=== PATIENT | male | born 1960 | race Caucasian/White ===

== ENCOUNTER 2017-12-26 06:23 | Inpatient (IN) ==
--- NOTE | 2017-12-26 06:06 | History & Physical Report ---
Date of Encounter: 12/26/17 Time of Encounter: 06:06 24 Hour HP Update - Instructions Instructions: If the History and Physical is less than 30 days old and was completed prior to A.M. admission and or procedure and has NOT been updated on calendar day of procedure please complete this update prior to performing procedure. - Update Patient reports changes in Medical Condition: No Changes in examination, assessment, or condition: No Changes in Medication: No Preop tests/diagnostics Reviewed: Yes Surgery Remains Indicated: Yes Consent for Planned Operative Procedure(s) Verified: Yes - Pre-Operative Checklist Preoperative Checklist Indicated: No Prophylactic Antibiotic Ordered: Yes Is VTE Prophylaxis Indicated?: Yes
[2017-12-26] MEDS ORDERED: CeFAZolin Syr 2,000MG/20 ML 2,000 MG/20 ML SYRINGE IVPB ONE (06:39)
[2017-12-26] MEDS ORDERED: Ringers Solution, Lactated 1,000 ML IVC SCH ×3 (06:45→17:37)
[2017-12-26] MEDS ORDERED: Pregabalin 75 MG CAPSULE PO ONE (07:00)
[2017-12-26] MEDS ORDERED: Famotidine 20 MG/2 ML VIAL IVP ONE (07:00)
[2017-12-26] MEDS ORDERED: ROPIVACAINE HCL/PF 0.5% 30 ML VIAL ONE ×2 (07:00→07:18)
[2017-12-26] MEDS ORDERED: Acetaminophen IV 1,000 MG/100 ML INFUS..BTL IVPB ONE (07:02)
--- NOTE | 2017-12-26 07:17 | Anesthesia Evaluation PreOp ---
Date of Encounter: 12/26/17 Time of Encounter: 07:15 - Past History Planned Operation: Bilateral TKA Cardiac History: HTN, Hyperlipidemia Pulmonary History: Denies Any Significant HX BUTTON BUTTONHOLE MARKER History: Denies Any Significant HX Other Medical History: Other (Morbid Obesity) Anesthesia History: No Prior Anesthetic Complications Alcohol Use: rarely Drug use: none Medications and Allergies Aspirin Enteric Coated [Aspirin EC] 325 mg PO BID #20 tablet. 12/25/17 [Rx] OxyCODONE Immed Rel [Roxicodone 5 MG] 5 mg PO Q6HR PRN 7 Days #28 tablet [Rx] 3 Allergy/AdvReac Type Severity Reaction Status Date / Time No Known Allergies Allergy Verified 12/25/17 12:11 - Meds/Allergy Pre-op Review Medications Reviewed: Yes Allergies Reviewed: Yes Beta Blockers on Current Med List: Yes (Atenolol yesterday 2199) Anesthesia Results - Labs Laboratory Tests 12/25/17 12/25/17 12:12 12:12 Hgb 15.2 Hct 43.6 Plt Count 275 Sodium 142 Potassium 3.7 BUN 22 H Creatinine 1.10 - Imaging EKG: report reviewed (SR) Anesthesia Exam O2 Sat Height 1.73 m Height 1.73 m Height 1.73 m Weight 119.748 kg Weight 119.748 kg Weight 119.748 kg O2 Sat by Pulse Oximetry 97 Vital Signs Temp Pulse Resp BP Pulse Ox 98.2 F 68 18 152/93 97 12/26/17 06:39 12/26/17 06:39 12/26/17 06:39 12/26/17 06:39 12/26/17 06:39 Height: 5'8 Weight: 264 lbs NPO (# of Hours): MN Pain Scale: 0 - HEENT Pupil (Motor): Pupils equal, EOMI Mallampati: III Teeth: Edentulous Oral Opening: Less than or equal to 3 - BUTTON BUTTONHOLE MARKER LOC: Oriented BUTTON BUTTONHOLE MARKER Motor: Normal RUE, Normal LUE, Normal RLE, Normal LLE, Normal Face BUTTON BUTTONHOLE MARKER Sensory: Normal: RUE, LUE, RLE, LLE, Face - Cardiac Rhythm: Regular Murmur: None JVD: No Carotid Bruit: No - Pulmonary Breath Sounds: bilateral Clear Respiratory Effort: Symmetrical Anesthesia Assess/Plan ASA Score: 3 (HTN MO) Modified Elida Scale for Level of Consciousness: Cooperative, oriented, and tranquil Anesthetic Plan: Regional, MAC Monitoring Plan: Standard Monitors Recovery Plan: PACU (Discussed SAB with Adductor Canal possible MAC, posible GA , agrees to proceed)
[2017-12-26] MEDS ORDERED: Dexmedetomidine HCl 400 MCG/100 ML MLS IVC ONE (07:18)
[2017-12-26] MEDS ORDERED: Tetracaine/PF 20 MG/2 ML AMPUL ONE (07:24)
[2017-12-26] MEDS ORDERED: Propofol 500 MG/50 ML INFUS..BTL ONE (07:25)
[2017-12-26] MEDS ORDERED: *HR* Midazolam HCl 2 MG/2 ML VIAL ONE (07:26)
[2017-12-26] MEDS ORDERED: Lidocaine -MPF 2% 2 ML VIAL ONE (07:26)
[2017-12-26] MEDS ORDERED: *HR* FentaNYL (PF) 100 MCG/2 ML VIAL ONE (07:26)
[2017-12-26] MEDS ORDERED: Lidocaine -MPF 2% 5 ML VIAL ONE (07:28)
[2017-12-26] MEDS ORDERED: Ethanol\\Acetic Acid\\Na Ace\\Ben 1,000 ML IRRIG.SOLN IR ONE (07:45)
--- NOTE | 2017-12-26 07:53 | Anesthesia Procedures ---
Date of Encounter: 12/26/17 Time of Encounter: 07:30 Procedures: Anesthesia - Epidural/Spinal Patient ID/Chart reviewed: Yes Patient examined: Yes Supplemental Oxygen: Nasal Cannula (2) Sedation: Versed (mg): 4 Site Prep: Aseptic Technique Patient position: upright Local Anesthetic: Lidocaine 1% Interspace Used: L4-L5 Loss of Resistance (GALINA): No Blood: No CSF: Yes Paresthesia: No Spinal Needle Gauge: 24 Spinal Dose: 12 mg isobaric marcaine,duramorph 300 micrograms - Nerve Block Procedure Date: 12/26/17 Time: 07:40 Pre-op Diagnosis: Knee OA Surgical Procedure: TKA Checklist: Correct Patient Identifier Correct side: Right Monitor Applied: EKG, BP, Pulse Oximetry Supplemental Oxygen via Nasal Cannula (L/min): 2 Sedation: Versed (mg): 4 Indication: Post Op Analgesia Pre-op Neuro Deficits: No Block Type: Other (Adductor Canal Block) Catheter placed: No Depth at skin (cm): 4 Sterile Technique: Yes Ultrasound used: Yes Anatomy identified: Yes Visual spread of Local: Yes Neuro Stimulation: No Blood on Needle Aspiration: No Smooth Injection of Local: Yes Pain with Injection of Local: No Prep: Chlorhexadine Needle: 21 x 100 mm Stimuplex Local: Ropivacaine Volume (cc): 30 Number of Attempts: 1 Complications: None/effective block (1) Vitals: Vital Signs/O2 Sat/Glucose, Most Current Temp Pulse Resp BP Pulse Ox 12/26/17 07:41 74 74 119/68 98 12/26/17 07:26 69 17 152/88 99 12/26/17 06:39 98.2 F 68 18 152/93 97
[2017-12-26] MEDS ORDERED: *HR* Labetalol 100 MG/20 ML MDV IVP PRN (08:41)
[2017-12-26] MEDS ORDERED: Ondansetron 4 MG/2 ML VIAL IVP ONE (08:41)
[2017-12-26] MEDS ORDERED: Dexamethasone 4 MG/ML VIAL IVP ONE (08:41)
[2017-12-26] MEDS ORDERED: Ketorolac 15 MG/ML VIAL IVP ONE (08:41)
[2017-12-26] MEDS ORDERED: *HR* OxyCODONE Immed Rel 5 MG TABLET PO PRN (08:41)
[2017-12-26] MEDS ORDERED: Ondansetron 4 MG/2 ML VIAL ONE (09:28)
[2017-12-26] MEDS ORDERED: Dexamethasone 4 MG/ML VIAL ONE (09:28)
--- NOTE | 2017-12-26 09:53 | Orthopedic Operative Note ---
Date of procedure: 12/26/17 Pre-op diagnosis: Bilateral knee arthritis Post-op diagnosis: same Procedure: Procedure: Bilateral robotic-assisted Total knee replacement Estimated blood loss: 500 cc Hardware: Metal and polyethylene replacement. Bilateral [place]oyen Femur: 4 Tibia: 4 PS insert: 11 Patella: 39 Exam Under anesthesia: Right knee 5 degree flexion contracture 15 degree varus, right knee for degree hyperextension 13 degree varus as calculated by the robot full flexion and no instability Procedural Notes: Grade 4 arthritic changes all 3 compartments both knees. Operative procedure: The patient was brought to the operating room and placed on the operating room table. After general anesthesia was administered the operative knee was examined. Findings were noted in the exam under anesthesia. The operative extremity was prepped and draped in sterile surgical fashion. The patient received IV antibiotics prior to skin incision. The Part that will be dictated will be for both knees any differences will be highlighted surgery began with the left knee followed by the right knee. A standard midline incision was made centered over the patella. The incision was made through the skin and subcutaneous tissue. A medial parapatellar tendon approach was performed. Care was taken to preserve tissue along the medial aspect of the patella. And to protect the patella tendon. The deep MCL was released off the medial tibia. The infra patella fat pad was excised. The patella was everted and cut was made at the level of the insertion of the quadriceps and patella tendon. The patella was sized to 39 the guide was seated and the lug holes are drilled. Knee was brought into flexion. Patient noted to have Steinmann pins were placed in the tibia and the femur for the tibial and femoral arrays respectively. Checkpoints were also placed in the tibia and the femur for calculation purposes. The knee including the femur and the tibial registered. Osteophytes, ACL and PCL were excised at this point. Extension and flexion were assessed with a valgus stress components were adjusted on the computer to balance the knee. Femoral cuts were made first with robotic assistance, these included the anterior cut posterior cuts chamfer cuts. Tibial cut was then performed with robotic assistance as well. Bone fragments were removed, as well as the medial and lateral meniscus. The size 4 femoral guide was seated box cut was made lug holes are drilled. The size 4 tibial tray was seated and prepared with the fin cutter. Trial reduction with the 11 TS [place] revealed extension of 0 degree and 5 degree varus left knee, 8 degree varus right knee full flexion. No varus valgus instability. Trial reduction revealed excellent patella tracking. All trial components were removed all bony surfaces were irrigated. The Tibia was seated followed by the femur, The [place] size 11 was seated and secured patella. Patient had similar findings for motion and stability. The knee was closed by the PA. The knee was then irrigated out with 2 L of pulse irrigation. The extensor mechanism was closed with #2 FiberWire suture and #2 PDS suture. The subcutaneous tissue was then irrigated and closed deep with #1 PDS suture superficially with 0 PDS suture and skin was closed with zip tie The patient was then placed in a sterile dressing and a postoperative brace extubated and transferred to recovery room in stable condition. Anesthesia: spinal Surgeon: Deven Albarran Was there an assistant professor of archaeology present: Yes Neighborhood Conservation Officer: Suma Cadet Estimated blood loss (cc): 500 Condition: stable Disposition: PACU
[2017-12-26] MEDS: *HR* Promethazine 25 MG/ML VIAL IVP PRN ×2 (10:49→10:54)
[2017-12-26 11:02] LABS: Hematocrit 40.6 % (37.5-50.1); Hemoglobin 14.2 g/dL (12.9-16.9)
[2017-12-26] MEDS ORDERED: *HR* OxyCODONE/APAP 5/325 TABLET PO PRN ×2 (12:56→17:37)
[2017-12-26] MEDS ORDERED: OXYCODONE Oral CONC 10 MG/0.5 ML ORAL.SYG SL PRN ×2 (12:56→14:15)
[2017-12-26] MEDS ORDERED: Naloxone 0.4 MG/ML INJ IVP PRN ×2 (12:56→17:37)
--- NOTE | 2017-12-26 12:58 | Anesthesia Evaluation Post Op ---
Date of Encounter: 12/26/17 Time of Encounter: 11:30 - Vital Signs Vital Signs: Vital Signs/O2 Sat/Glucose, Most Current Temp Pulse Resp BP Pulse Ox 12/26/17 11:21 97.7 F 58 16 97/63 100 12/26/17 11:11 97.7 F 53 18 105/65 100 12/26/17 11:01 97.7 F 61 18 114/73 100 12/26/17 10:51 62 18 133/91 100 12/26/17 10:41 54 20 123/81 98 12/26/17 10:31 97.2 F L 61 26 132/84 92 - Lungs Lungs: Clear Ascult./Percussion - Airway Airway: Non-obstructed - Cardiovascular Regular Rate - Mental Status Mental Status: Alert & Oriented, Answers Appropriately - Pain Pain Scale: 0 - Nausea Vomiting Nausea Vomiting: Not Present - Hydration Hydration: Ice chips - Discharge PostOp Status: Transfer Patient to floor
--- NOTE | 2017-12-26 15:52 | Physician Discharge Referral ---
<Suma Cadet Jeanie - Last Filed: 12/26/17 15:50> Home Health/Hosp Referral Info Transfer to: Home Health Attending Provider: Provider in Charge Post Discharge: PCP - Diagnosis (1) Status post total bilateral knee replacement Priority: Primary Status: Acute (2) Arthritis of knee Priority: Primary Status: Acute (3) HTN (hypertension) Priority: Secondary Status: Acute (4) Obesity (BMI 35.0-39.9 without comorbidity) Priority: Secondary Status: Chronic - Respiratory Orders None Smoking Cessation: Smoking cessation has been advised. For more information, call the [place] Tobacco Quit Line at 1-927-HEFM-NOW. - Diet/Nutrition Diet/Nutrition Orders: Regular - Activity Activity Orders: Up ad tra, Ambulate, Walker - Services Needed Following services are medically necessary services: Nursing, Home Health Aide, Physical Therapy, Occupational Therapy Home Care Orders: Rehab orders for total knee: Total Knee replacement Precautions x 6 weeks Apply cold therapy wrap 3-6x/day for 20 minutes at a time. Encourage ambulation throughout the day and incentive spirometer 10x/hour. Elevate affected extremity above heart as tolerated. Brace: Wear knee immobilizer at night x 2 weeks. Treatments: Opsite and Zipline dressing, leave intact until first post-operative visit. If dressing becomes >50% saturated, contact office, remove dressing and place appropriate dressing in its place. Do not allow for dressing to get wet. Educated on use of incentive spirometer, ambulation, and hydration. Patient educated on post-operative restrictions and care. - Transfer Medications Prescriptions: Cyclobenzaprine [Flexeril] 10 mg PO BID PRN 10 Days #20 tablet PRN Reason: Muscle Spasm Lidocaine Patch [Lidoderm 5% patch] 1 each TP DAILY #60 adh..patch Home Medications: Aspirin Enteric Coated [Aspirin EC] 325 mg PO BID #20 tablet. 12/25/17 [Rx] OxyCODONE Immed Rel [Roxicodone 5 MG] 5 mg PO Q6HR PRN 7 Days #28 tablet [Rx] Aspirin [Lo-Dose Aspirin EC] 81 mg PO DAILY 12/26/17 [History] Atenolol [Tenormin] 50 mg PO HS 12/26/17 [History] Dextromethorphan Hb/Doxylamine [Vicks Nyquil Cough Liquid] 30 ml PO HS PRN 07/11 /18 [History] Lisinopril [Zestril] 20 mg PO HS 12/26/17 [History] amLODIPine [Norvasc] 5 mg PO HS 12/26/17 [History] Cyclobenzaprine [Flexeril] 10 mg PO BID PRN 10 Days #20 tablet 12/27/17 [Rx] Lidocaine Patch [Lidoderm 5% patch] 1 each TP DAILY #60 adh..patch 12/27/17 [Rx] Allergies/Adverse Reactions: 3 Allergy/AdvReac Type Severity Reaction Status Date / Time No Known Allergies Allergy Verified 12/26/17 07:26 Certification: Further, I certify that my clinical findings support that this patient is homebound (i.e. absences from home require considerable and taxing effort and are for medical reasons or sabianism services or infrequently or short duration when for other reasons) because: Homebound Reason: Post-surgery restriction and or conditions limit ability to leave home Attestation: My signature below is to certify that this patient is under my care and that I, or nurse practitioner, or a physician's assistant pastry chef working with me, has a face-to -face encounter with this patient. <Deven Albarran - Last Filed: 12/28/17 06:45> - Respiratory Orders Smoking Cessation: Smoking cessation has been advised. For more information, call the [place] Tobacco Quit Line at 3-554-YPNW-NOW. Certification: Further, I certify that my clinical findings support that this patient is homebound (i.e. absences from home require considerable and taxing effort and are for medical reasons or sabianism services or infrequently or short duration when for other reasons) because: Attestation: My signature below is to certify that this patient is under my care and that I, or nurse practitioner, or a physician's assistant pastry chef working with me, has a face-to -face encounter with this patient.
[2017-12-26] MEDS ORDERED: DOXYLAMINE PO PRN (17:37)
[2017-12-26] MEDS ORDERED: DEXTROMETHORPHAN HB PO PRN (17:37)
[2017-12-26] MEDS ORDERED: MOM Conc 10 ML UD.LIQ PO PRN (17:37)
[2017-12-26] MEDS ORDERED: Temazepam 15 MG CAPSULE PO PRN (17:37)
[2017-12-26] MEDS ORDERED: traMADol 50 MG TABLET PO PRN (17:37)
[2017-12-26] MEDS ORDERED: Ondansetron 4 MG/2 ML VIAL IVP PRN (17:37)
[2017-12-26] MEDS ORDERED: Sennosides 8.6 MG TABLET PO PRN (17:37)
[2017-12-26] MEDS ORDERED: *HR* Enoxaparin 30 MG/0.3 ML SYRINGE SQ SCH (18:00)
[2017-12-26] MEDS: *HR* Enoxaparin 30 MG/0.3 ML SYRINGE SQ SCH (18:20)
[2017-12-26] MEDS: Aspirin Enteric Coated 81 MG Tablet PO SCH (18:24)
[2017-12-26] MEDS: ceFAZolin 2,000 MG in 0.9 % Sodium Chloride 100 ML IVPB SCH (20:05)
[2017-12-26] MEDS: Lisinopril 20 MG TABLET PO SCH (20:05)
[2017-12-26] MEDS: amLODIPine 5 MG TABLET PO SCH (20:05)
[2017-12-26] MEDS ORDERED: *HR* Promethazine 25 MG/ML VIAL IVP PRN (20:45)
[2017-12-27 01:53] LABS: Hemoglobin 13.5 g/dL (12.9-16.9)
[2017-12-27] MEDS: ceFAZolin 2,000 MG in 0.9 % Sodium Chloride 100 ML IVPB SCH (02:33)
[2017-12-27] MEDS: *HR* OxyCODONE Immed Rel 5 MG TABLET PO PRN ×5 (02:39→21:02)
[2017-12-27 02:53] LABS: BUN/Creatinine Ratio 25 (6-26); Blood Urea Nitrogen 26 mg/dL (6-20); Calcium 9.1 mg/dL (8.6-10.3); Carbon Dioxide 22 mEq/L (23-29); Chloride 104 mEq/L (98-107); Glucose 196 mg/dL (70-105); Osmolality,Calculated 296 (280-300); Potassium 4.3 mEq/L (3.5-5.1); Sodium 138 mEq/L (136-145); eGFR For African Americans > 60 (> 60); eGFR For Non-African Americans > 60 (> 60)
[2017-12-27] MEDS: *HR* Enoxaparin 30 MG/0.3 ML SYRINGE SQ SCH ×2 (05:59→17:01)
--- NOTE | 2017-12-27 08:11 | Orthopedics Progress Note ---
Date of Encounter: 12/27/17 Time of Encounter: 08:11 Subjective Interval history: Patient was seen this morning doing well without complaints. Afebrile vital signs stable. Operative extremity: Neurovascularly intact Dressing clean dry and intact Calves nontender Assessment and plan: Continue with postoperative care Objective Vital signs: Vital Signs Temp Pulse Resp BP Pulse Ox 12/27/17 06:24 98.2 F 78 17 127/72 99 12/27/17 04:07 98.7 F 75 16 109/63 95 12/26/17 23:10 98.3 F 74 16 107/63 97 12/26/17 19:18 97.8 F 73 14 134/84 98 12/26/17 17:55 98.1 F 61 12 119/77 92 12/26/17 13:50 97.6 F 56 12 123/73 100 12/26/17 12:06 50 12 100/64 100 12/26/17 11:40 97.1 F L 50 14 101/65 96 12/26/17 11:21 97.7 F 58 16 97/63 100 12/26/17 11:11 97.7 F 53 18 105/65 100 12/26/17 11:01 97.7 F 61 18 114/73 100 12/26/17 10:51 62 18 133/91 100 12/26/17 10:41 54 20 123/81 98 12/26/17 10:31 97.2 F L 61 26 132/84 92 Intake and Output 12/26/17 12/27/17 12/27/17 23:59 07:59 15:59 Intake Total 100 / 100 Output Total 750 / 750 Balance -650 / -650 Intake: IV Fluids 100 / 100 Ancef 2,000 MG In 0.9 % Sodium 100 / 100 Chloride 100 ML @ 200 mls/hr IVPB Q8H [facility] Rx#:[id number] Output: Emesis 100 / 100 Straight Cath 650 / 650 Other: Stool Size Small Stool Consistency loose Stool Color Brown - Labs CBC & BMP: 12/27/17 01:55 12/27/17 01:18 Labs: Abnormal lab results Carbon Dioxide 22 mEq/L (23-29) L 12/27/17 01:18 BUN 26 mg/dL (6-20) H 12/27/17 01:18 Glucose 196 mg/dL (70-105) H 12/27/17 01:18 - VTE Documentation of Mechanical Device: Venous foot pump, device Consult Discharge Plan - Plan Referrals: Alonzo Orozco [Primary Care Provider] -
[2017-12-27] MEDS: Aspirin Enteric Coated 81 MG Tablet PO SCH (08:38)
--- NOTE | 2017-12-27 16:33 | Event Note ---
Date of Encounter: 12/27/17 Time of Encounter: 16:30 PCR - POD#1 Patient seen at bedside, without complaints. A&O x 3 Urinary Retention - continue to bladder scan and straight cath if needed with residual > 400mL. Will consider urology consult in AM if no progression. Afebrile, vital signs stable. Labs reviewed. H/H - stable, asymptomatic Pain control: adequate 12/26 - Added Flexeril 5mg BID, Lidoderm patch Participating in PT. All questions and concerns addressed. Educated on use of incentive spirometer. Encouraged ambulation and proper hydration. Patient educated on post-operative restrictions and post-operative care. Assessment and plan: Continue with postoperative care Discharge plan: ECF - pending authorization, added continuity, medications added
--- NOTE | 2017-12-27 16:36 | Physician Discharge Referral ---
<FreedomlopezSuma wheatley L - Last Filed: 12/27/17 16:33> ExtendedCare Referral Info Transfer To: [facility] Provider in Charge: Provider in Charge after Transfer: PCP Institutional Level of Care: Skilled - Diagnosis (1) Status post total bilateral knee replacement Priority: Primary Status: Acute (2) Arthritis of knee Priority: Primary Status: Acute (3) HTN (hypertension) Priority: Secondary Status: Acute (4) Obesity (BMI 35.0-39.9 without comorbidity) Priority: Secondary Status: Chronic (5) Urinary retention Priority: Secondary Status: Acute Expected Duration of Placement: < 30 days Prognosis: Good Aware of Diagnosis: Patient Aware of Prognosis: Patient - Transfer Medications Prescriptions: Cyclobenzaprine [Flexeril] 10 mg PO BID PRN 10 Days #20 tablet PRN Reason: Muscle Spasm Lidocaine Patch [Lidoderm 5% patch] 1 each TP DAILY #60 adh..patch Home Medications: Aspirin Enteric Coated [Aspirin EC] 325 mg PO BID #20 tablet. 12/25/17 [Rx] OxyCODONE Immed Rel [Roxicodone 5 MG] 5 mg PO Q6HR PRN 7 Days #28 tablet [Rx] Aspirin [Lo-Dose Aspirin EC] 81 mg PO DAILY 12/26/17 [History] Atenolol [Tenormin] 50 mg PO HS 12/26/17 [History] Dextromethorphan Hb/Doxylamine [Vicks Nyquil Cough Liquid] 30 ml PO HS PRN 12/26 [History] Lisinopril [Zestril] 20 mg PO HS 12/26/17 [History] amLODIPine [Norvasc] 5 mg PO HS 12/26/17 [History] Cyclobenzaprine [Flexeril] 10 mg PO BID PRN 10 Days #20 tablet 12/27/17 [Rx] Lidocaine Patch [Lidoderm 5% patch] 1 each TP DAILY #60 adh..patch 12/27/17 [Rx] Allergies/Adverse Reactions: 3 Allergy/AdvReac Type Severity Reaction Status Date / Time No Known Allergies Allergy Verified 12/26/17 07:26 - Respiratory Orders None Smoking Cessation: Smoking cessation has been advised. For more information, call the [place] Tobacco Quit Line at 7-349-AJAM-NOW. - Mobility Orders Chair, Ambulate - Rehabiliation Orders Rehab Potential: Good Rehab Orders: ROM Exercises, Evaluation for Physical Therapy, Evaluation for Occupational Therapy Other: Opsite dressing, leave intact until first post-operative visit. If dressing becomes >50% saturated, contact office, remove dressing and place appropriate dressing in its place. Do not allow for dressing to get wet. Zipline in place, plan to remove at post-operative day #14-16. Total Joint Precautions x 6 weeks Apply cold therapy wrap 3-6x/day for 20 minutes at a time. Encourage ambulation throughout the day Use Incentive spirometer 10x/hour. Elevate affected extremity above heart as tolerated. Brace: Wear knee immobilizer at night x 2 weeks.~ - Diet Orders Regular CERTIFICATION: I certify that the transfer of the above named patient to an Extended Care Facility is necessary for the continuing treatment of the diagnosis listed. The above information is true and accurate reflection of patient's current condition. Confidential - Redisclosure prohibited without a patient's written consent. <Deven Albarran - Last Filed: 12/28/17 06:45> - Respiratory Orders Smoking Cessation: Smoking cessation has been advised. For more information, call the [place] Tobacco Quit Line at 3-485-KIDK-NOW. CERTIFICATION: I certify that the transfer of the above named patient to an Extended Care Facility is necessary for the continuing treatment of the diagnosis listed. The above information is true and accurate reflection of patient's current condition. Confidential - Redisclosure prohibited without a patient's written consent.
[2017-12-27] MEDS: Lisinopril 20 MG TABLET PO SCH (20:08)
[2017-12-27] MEDS: amLODIPine 5 MG TABLET PO SCH (20:08)
[2017-12-28] MEDS: *HR* OxyCODONE Immed Rel 5 MG TABLET PO PRN ×4 (00:55→15:13)
[2017-12-28 01:39] LABS: Hematocrit 33.4 % (37.5-50.1); Hemoglobin 11.7 g/dL (12.9-16.9)
[2017-12-28 01:56] LABS: BUN/Creatinine Ratio 26 (6-26); Blood Urea Nitrogen 22 mg/dL (6-20); Calcium 8.4 mg/dL (8.6-10.3); Carbon Dioxide 22 mEq/L (23-29); Chloride 103 mEq/L (98-107); Glucose 132 mg/dL (70-105); Osmolality,Calculated 285 (280-300); Potassium 3.6 mEq/L (3.5-5.1); Sodium 135 mEq/L (136-145); eGFR For African Americans > 60 (> 60); eGFR For Non-African Americans > 60 (> 60)
[2017-12-28] MEDS: *HR* Enoxaparin 30 MG/0.3 ML SYRINGE SQ SCH (04:54)
--- NOTE | 2017-12-28 06:46 | Orthopedics Progress Note ---
Date of Encounter: 12/28/17 Time of Encounter: 06:45 Subjective Interval history: Patient was seen this morning doing well without complaints. Afebrile vital signs stable. Operative extremity: Neurovascularly intact Dressing clean dry and intact Calves nontender Assessment and plan: Continue with postoperative care hemoglobin 11.7 Objective Vital signs: Vital Signs Temp Pulse Resp BP Pulse Ox 12/28/17 03:35 98.8 F 89 16 139/77 93 12/28/17 00:12 98.9 F 88 18 152/84 98 12/27/17 19:00 98.8 F 99 18 159/86 99 12/27/17 16:21 97.7 F 98 17 153/86 98 12/27/17 11:49 98.4 F 94 17 112/62 96 Intake and Output 12/27/17 12/27/17 12/28/17 15:59 23:59 07:59 Intake Total 1120 / 1120 Output Total 600 / 600 175 / 175 Balance 520 / 520 -175 / -175 Intake: IV Fluids 1000 / 1000 Lactated Ringers 1,000 ML @ 75 1000 / 1000 mls/hr IVC .[id number] [facility] Rx#: [id number] Oral 120 / 120 Output: Urine 175 / 175 Straight Cath 600 / 600 Other: Meal Lunch Percent of Meal Consumed 95% # Voids 1 1 - Labs CBC & BMP: 12/28/17 01:08 12/28/17 01:08 Labs: Abnormal lab results Hgb 11.7 g/dL (12.9-16.9) L D 12/28/17 01:08 Hct 33.4 % (37.5-50.1) L 12/28/17 01:08 Sodium 135 mEq/L (136-145) L 12/28/17 01:08 Carbon Dioxide 22 mEq/L (23-29) L 12/28/17 01:08 BUN 22 mg/dL (6-20) H 12/28/17 01:08 Glucose 132 mg/dL (70-105) H 12/28/17 01:08 Calcium 8.4 mg/dL (8.6-10.3) L 12/28/17 01:08 - VTE Documentation of Mechanical Device: Venous foot pump, device Consult Discharge Plan - Plan Referrals: Alonzo Orozco [Primary Care Provider] - Prescriptions: Cyclobenzaprine [Flexeril] 10 mg PO BID PRN 10 Days #20 tablet PRN Reason: Muscle Spasm Lidocaine Patch [Lidoderm 5% patch] 1 each TP DAILY #60 adh..patch
[2017-12-28] MEDS: Aspirin Enteric Coated 81 MG Tablet PO SCH (08:50)
[2017-12-28 11:16] VITALS: BP 158/82
--- NOTE | 2017-12-28 11:34 | Discharge Summary ---
Orders not resulted at time of discharge: Pending orders 12/26/17 07:20 US anesthesia pain block [US] Routine 12/26/17 09:44 Surgical Pathology [PTH] Routine Date of Encounter: 12/28/17 Time of Encounter: 11:33 - Discharge Diagnosis (1) Status post total bilateral knee replacement Priority: Primary Status: Acute (2) Arthritis of knee Priority: Primary Status: Acute (3) HTN (hypertension) Priority: Secondary Status: Chronic Qualifiers: Hypertension type: essential hypertension Qualified Code(s): I10 - Essential (primary) hypertension (4) Obesity (BMI 35.0-39.9 without comorbidity) Priority: Secondary Status: Chronic (5) Urinary retention Priority: Secondary Status: Resolved Comments: 12/28 - Resolved. - Hospital Course Hospital course: Mr. Coffman is a 57 year old male, s/p Bilateral TKR POD#2 Patient seen at bedside, without complaints. A&O x 3 12/27: Urinary Retention - continue to bladder scan and straight cath if needed with residual > 400mL. Will consider urology consult in AM if no progression. 12/28 - Urinary retention resolved. Afebrile, vital signs stable. Labs reviewed. H/H - stable, asymptomatic Pain control: adequate 12/26 - Added Flexeril 5mg BID, Lidoderm patch Participating in PT. All questions and concerns addressed. Educated on use of incentive spirometer. Encouraged ambulation and proper hydration. Patient educated on post-operative restrictions and post-operative care. Assessment and plan: Continue with postoperative care Discharge plan: 12/27 - [facility] - pending authorization, added continuity, medications added 12/28 - OK for D/C today, summary printed, pending auth - Time Spent with Patient Total time spent providing and/or coordinating discharge services: Less than 30 minutes - Discharge Medications Prescriptions: Cyclobenzaprine [Flexeril] 10 mg PO BID PRN 10 Days #20 tablet PRN Reason: Muscle Spasm Lidocaine Patch [Lidoderm 5% patch] 1 each TP DAILY #60 adh..patch Home Medications: Aspirin Enteric Coated [Aspirin EC] 325 mg PO BID #20 tablet. 12/25/17 [Rx] OxyCODONE Immed Rel [Roxicodone 5 MG] 5 mg PO Q6HR PRN 7 Days #28 tablet [Rx] Aspirin [Lo-Dose Aspirin EC] 81 mg PO DAILY 12/26/17 [History] Atenolol [Tenormin] 50 mg PO HS 12/26/17 [History] Dextromethorphan Hb/Doxylamine [Vicks Nyquil Cough Liquid] 30 ml PO HS PRN 12/26 [History] Lisinopril [Zestril] 20 mg PO HS 12/26/17 [History] amLODIPine [Norvasc] 5 mg PO HS 12/26/17 [History] Cyclobenzaprine [Flexeril] 10 mg PO BID PRN 10 Days #20 tablet 12/27/17 [Rx] Lidocaine Patch [Lidoderm 5% patch] 1 each TP DAILY #60 adh..patch 12/27/17 [Rx] Allergies/Adverse Reactions: 3 Allergy/AdvReac Type Severity Reaction Status Date / Time No Known Allergies Allergy Verified 12/26/17 07:26 Date of admission: 12/26/17 11:36 Primary care physician: Alonzo Orozco Consults: 12/26/17 17:37 Consult to Occupational Therapy [CONS] Routine Comment: Evaluate, develop and implement POC Reason for Consult: post knee surgery Does patient have active BEDREST order?: No Is patient medically & hemodynamically stable?: Yes Consult to Orthopedic Navigator [CONS] [CONS] Routine Consult to Physical Therapy [CONS] Routine Comment: Evaluate, develop and impliment POC Reason for Consult: post knee surgery Does patient have active BEDREST order?: No Is patient medically & hemodynamically stable?: Yes Consult to Medical Technologist Generalist [CONS] Routine Reason for SW Consult: post op joint replacement RT Post Op Consult [CONS] Routine - VTE Documentation of Mechanical Device: Venous foot pump, device Labs on day of discharge: Labs from last 24 hours 12/28/17 12/28/17 01:08 01:08 Hgb 11.7 L D Hct 33.4 L Sodium 135 L Potassium 3.6 Chloride 103 Carbon Dioxide 22 L BUN 22 H Creatinine 0.84 Est GFR ( Amer) > 60 Est GFR (Non-Af Amer) > 60 BUN/Creatinine Ratio 26 Glucose 132 H Calculated Osmolality 285 Calcium 8.4 L - Impressions ITS Impressions Knee X-Ray 12/26/17 00:01 IMPRESSION: Bilateral total knee arthroplasties without acute hardware complication. No acute hardware failure. D/ / Esequiel Villanueva MD / Esequiel Villanueva MD Interpreting Provider: Esequiel Villanueva MD - Patient Status Disposition: Transfer SNF Condition: Good Functional capacity at discharge: uses cane/walker Overall status at discharge: patient is back to baseline - Discharge Instructions Follow Up With: Alonzo Orozco [Primary Care Provider] - - Diet and Activity Activity: as per physical therapy
== END 2017-12-28 16:13 | DRG 302 ==
LOC: SAMDAY 06:23 → 3NENU 11:36
PROVIDERS: ADMIT Orthopaedic Surgery; ATTEND Orthopaedic Surgery

== ENCOUNTER 2020-12-21 15:51 | Observation (INO) ==
[~2020-12-21 15:51] MED LIST: Ondansetron 4 MG/2 ML VIAL IVP ONE
[2020-12-21] MEDS ORDERED: 0.9 % Sodium Chloride 1,000 ML IVC ONE (16:56)
[2020-12-21 17:29] LABS: Basophils # 0.1 K/mcL (0.0-0.2); Basophils % 0.9 %; Eosinophils # 0.1 K/mcL (0.0-0.6); Eosinophils % 0.7 %; Hematocrit 43.1 % (37.5-50.1); Hemoglobin 13.8 g/dL (12.9-16.9); Immature Granulocytes % 0.9 % (0-4); Lymphocytes # 2.2 K/mcL (0.6-4.6); Lymphocytes % 21.3 %; Mean Corpuscular Hemoglobin 27.3 pg (28.0-33.3); Mean Corpuscular Volume 85.3 fL (83.0-100.0); Mean Platelet Volume 10.8 fL (9.4-12.4); Monocytes # 1.1 K/mcL (0.0-1.3); Monocytes % 11.1 %; Neutrophils # 6.7 K/mcL (1.6-8.9); Platelet Count 290 K/mcL (140-400); Red Blood Count 5.05 M/mcL (4.19-5.50); Red Cell Distribution Width 13.2 % (11.5-14.5); Segmented Neutrophils % 65.1 %; White Blood Count 10.2 K/mcL (4.3-11.1)
[2020-12-21 17:44] LABS: BUN/Creatinine Ratio 18 (6-26); Blood Urea Nitrogen 16 mg/dL (8-23); Calcium 8.5 mg/dL (8.6-10.3); Carbon Dioxide 28 mEq/L (23-29); Chloride 104 mEq/L (98-107); Glucose 91 mg/dL (70-105); Osmolality,Calculated 289 (280-300); Potassium 3.6 mEq/L (3.5-5.1); Sodium 139 mEq/L (136-145); Troponin I < 0.03 ng/mL (< 0.04); eGFR For African Americans > 60 (> 60); eGFR For Non-African Americans > 60 (> 60)
[2020-12-21] MEDS ORDERED: Isovue-370 500 ML BOTTLE IVP ONE (17:44)
[2020-12-21] MEDS ORDERED: cefTRIAXone 1,000 MG in Water for inj. (sterile) 10 ML IVP ONE (17:46)
[2020-12-21] MEDS ORDERED: Azithromycin 500 MG in 0.9 % Sodium Chloride 250 ML IVPB ONE (17:46)
[2020-12-21 17:57] LABS: Bacteria,Urine Few per hpf (None-Few); Bilirubin,Urine Negative (Negative); Blood,Urine Trace (Negative); Clarity,Urine Clear (Clear); Color,Urine Yellow (Yellow); Glucose,Urine (UA) Normal (Normal); Ketones,Urine Negative (Negative); Leukocyte Esterase,Urine Negative (Negative); Mucus,Urine Few per lpf (None-Few); Nitrite,Urine Negative (Negative); Protein,Urine 70 mg/dL (Neg-Trace); Specific Gravity,Urine > 1.030 (1.010-1.025); Squamous Epithelial Cell,Urine Few per hpf (None-Few); WBC,Urine 0-3 per hpf (0-3)
[2020-12-21] MEDS ORDERED: Ondansetron 4 MG/2 ML VIAL IVP PRN (22:59)
[2020-12-21] MEDS ORDERED: Naloxone 0.4 MG/ML INJ IVP PRN (22:59)
[2020-12-21] MEDS ORDERED: Melatonin 3 MG TABLET PO PRN (22:59)
[2020-12-22 02:21] LABS: Adenovirus Not Detected (Not Detect); Bordetella Pertussis Not Detected (Not Detect); Chlamydophila pneumoniae Not Detected (Not Detect); Coronavirus 229E Not Detected (Not Detect); Coronavirus HKU1 Not Detected (Not Detect); Coronavirus NL63 Not Detected (Not Detect); Coronavirus OC43 Not Detected (Not Detect); Human Metapneumovirus Not Detected (Not Detect); Human Rhinovirus/Enterovirus Not Detected (Not Detect); Influenza A Subtype 2009 H1 Not Detected (Not Detect); Influenza B Not Detected (Not Detect); Mycoplasma pneumoniae Not Detected (Not Detect); Parainfluenza Virus 1 Not Detected (Not Detect); Parainfluenza Virus 2 Not Detected (Not Detect); Parainfluenza Virus 3 Not Detected (Not Detect); Parainfluenza Virus 4 Not Detected (Not Detect); Respiratory Syncytial Virus Not Detected (Not Detect); SARS-CoV-2 Not Detected (Not Detect)
[2020-12-22 03:14] LABS: Hematocrit 39.6 % (37.5-50.1); Hemoglobin 12.6 g/dL (12.9-16.9); Mean Corpuscular HGB Conc 31.8 g/dL (31.6-35.5); Mean Corpuscular Hemoglobin 27.1 pg (28.0-33.3); Mean Corpuscular Volume 85.2 fL (83.0-100.0); Mean Platelet Volume 10.3 fL (9.4-12.4); Platelet Count 277 K/mcL (140-400); Red Blood Count 4.65 M/mcL (4.19-5.50); Red Cell Distribution Width 13.3 % (11.5-14.5); White Blood Count 9.6 K/mcL (4.3-11.1)
[2020-12-22 03:36] LABS: BUN/Creatinine Ratio 18 (6-26); Blood Urea Nitrogen 14 mg/dL (8-23); Calcium 7.9 mg/dL (8.6-10.3); Carbon Dioxide 23 mEq/L (23-29); Chloride 105 mEq/L (98-107); Glucose 99 mg/dL (70-105); Magnesium 1.8 mg/dL (1.6-2.6); Osmolality,Calculated 285 (280-300); Potassium 3.4 mEq/L (3.5-5.1); Sodium 137 mEq/L (136-145); eGFR For African Americans > 60 (> 60); eGFR For Non-African Americans > 60 (> 60)
[2020-12-22] MEDS ORDERED: Isovue-370 500 ML BOTTLE IVP ONE (08:40)
[2020-12-22] MEDS ORDERED: Lidocaine -MPF 4% 5 ML AMPUL ONE (09:02)
[2020-12-22] MEDS ORDERED: *HR* Succinylcholine 200 MG/10 ML VIAL IVP ONE (09:02)
[2020-12-22] MEDS ORDERED: Ondansetron 4 MG/2 ML VIAL ONE (09:02)
[2020-12-22] MEDS ORDERED: Lidocaine -MPF 2% 5 ML VIAL ONE (09:02)
[2020-12-22] MEDS ORDERED: *HR* FentaNYL (PF) 100 MCG/2 ML VIAL ONE (09:02)
[2020-12-22] MEDS ORDERED: *HR* Propofol 200 MG/20 ML VIAL IVP ONE (09:02)
[2020-12-22] MEDS ORDERED: Acetaminophen IV 1,000 MG/100 ML BAG IVPB PRN (09:13)
[2020-12-22] MEDS ORDERED: *HR* FentaNYL (PF) 100 MCG/2 ML VIAL IVP PRN (09:13)
[2020-12-22] MEDS: Azithromycin 250 MG TABLET PO SCH (11:13)
[2020-12-22] MEDS: cefTRIAXone 1,000 MG in Water for inj. (sterile) 10 ML IVP SCH (11:13)
[2020-12-22 14:20] LABS: Source of Body Fluid bal lt. upper lobe; Source of Body Fluid rt lower lobe bal
[2020-12-22 16:35] LABS: Appearance of Body Fluid Cloudy (Clear); Volume of Body Fluid 18 mL
[2020-12-22 16:46] LABS: Appearance of Body Fluid Cloudy (Clear); Volume of Body Fluid 18 mL
[2020-12-22] MEDS ORDERED: (Diclofenac Sodium [Voltaren] 100 GM Gel..Gram.) TP PRN (17:53)
[2020-12-22 19:50] LABS: Acinetobacter baumannii by PCR Not Detected (Not Detect); Candida albicans by PCR Not Detected (Not Detect); Candida glabrata by PCR Not Detected (Not Detect); Candida krusei by PCR Not Detected (Not Detect); Candida parapsilosis by PCR Not Detected (Not Detect); Candida tropicalis by PCR Not Detected (Not Detect); Enterobacter cloacae Cmplx PCR Not Detected (Not Detect); Enterobacteriaceae by PCR Not Detected (Not Detect); Enterococcus by PCR Not Detected (Not Detect); Escherichia coli by PCR Not Detected (Not Detect); Klebsiella oxytoca by PCR Not Detected (Not Detect); Klebsiella pneumoniae by PCR Not Detected (Not Detect); Proteus by PCR Not Detected (Not Detect); Pseudomonas aeruginosa by PCR Not Detected (Not Detect); Serratia marcescens by PCR Not Detected (Not Detect); Staphylococcus aureus by PCR Not Detected (Not Detect); Staphylococcus by PCR DETECTED (Not Detect); Streptococcus agalactiae(B)PCR Not Detected (Not Detect); Streptococcus by PCR Not Detected (Not Detect); Streptococcus pneumoniae PCR Not Detected (Not Detect); Streptococcus pyogenes (A) PCR Not Detected (Not Detect); mecA Methicillin-Resist Gene Not Detected (Not Detect)
[2020-12-22] MEDS: atenoloL 50 MG TABLET PO SCH (21:15)
[2020-12-23 05:49] LABS: Basophils # 0.1 K/mcL (0.0-0.2); Basophils % 0.6 %; Eosinophils % 0.3 %; Hematocrit 41.5 % (37.5-50.1); Hemoglobin 13.9 g/dL (12.9-16.9); Immature Granulocytes % 1.8 % (0-4); Lymphocytes # 2.5 K/mcL (0.6-4.6); Lymphocytes % 25.7 %; Mean Corpuscular HGB Conc 33.5 g/dL (31.6-35.5); Mean Corpuscular Hemoglobin 28.4 pg (28.0-33.3); Mean Corpuscular Volume 84.7 fL (83.0-100.0); Mean Platelet Volume 10.2 fL (9.4-12.4); Monocytes # 0.9 K/mcL (0.0-1.3); Monocytes % 9.6 %; Neutrophils # 5.9 K/mcL (1.6-8.9); Platelet Count 356 K/mcL (140-400); Red Cell Distribution Width 13.2 % (11.5-14.5); White Blood Count 9.6 K/mcL (4.3-11.1)
[2020-12-23 06:03] LABS: INR 1.2; Prothrombin Time 14.1 Seconds (9.4-12.1)
[2020-12-23 06:14] LABS: BUN/Creatinine Ratio 21 (6-26); Blood Urea Nitrogen 16 mg/dL (8-23); Calcium 8.7 mg/dL (8.6-10.3); Carbon Dioxide 24 mEq/L (23-29); Chloride 106 mEq/L (98-107); Glucose 101 mg/dL (70-105); Magnesium 2.3 mg/dL (1.6-2.6); Osmolality,Calculated 289 (280-300); Potassium 3.9 mEq/L (3.5-5.1); Sodium 139 mEq/L (136-145); eGFR For African Americans > 60 (> 60); eGFR For Non-African Americans > 60 (> 60)
[2020-12-23] MEDS: cefTRIAXone 1,000 MG in Water for inj. (sterile) 10 ML IVP SCH (08:56)
[2020-12-23] MEDS: amLODIPine 5 MG TABLET PO SCH (08:56)
[2020-12-23] MEDS: Azithromycin 250 MG TABLET PO SCH (08:56)
[2020-12-23] MEDS ORDERED: Methyl Salicylate/Menthol 85 APPL/85 GM TUBE TP PRN (13:15)
[2020-12-23] MEDS: CeFAZolin 2,000 MG/120 ML BAG IVPB SCH ×3 (17:00→23:57)
[2020-12-23] MEDS: atenoloL 50 MG TABLET PO SCH (20:14)
[2020-12-24 02:12] LABS: Hematocrit 43.4 % (37.5-50.1); Hemoglobin 14.2 g/dL (12.9-16.9); Mean Corpuscular HGB Conc 32.7 g/dL (31.6-35.5); Mean Corpuscular Hemoglobin 27.9 pg (28.0-33.3); Mean Corpuscular Volume 85.3 fL (83.0-100.0); Red Blood Count 5.09 M/mcL (4.19-5.50); Red Cell Distribution Width 13.2 % (11.5-14.5)
[2020-12-24 02:14] LABS: Basophils # 0.1 K/mcL (0.0-0.2); Eosinophils # 0.1 K/mcL (0.0-0.6); Eosinophils % 1.1 %; Immature Granulocytes % 2.6 % (0-4); Immature Platelets 18.6 % (1.1-6.1); Lymphocytes # 2.9 K/mcL (0.6-4.6); Lymphocytes % 28.1 %; Mean Platelet Volume 12.8 fL (9.4-12.4); Monocytes # 1.1 K/mcL (0.0-1.3); Monocytes % 10.3 %; Neutrophils # 5.9 K/mcL (1.6-8.9); Nucleated Red Blood Cells 0.3 /100 WBC (0); Platelet Count 217 K/mcL (140-400); Segmented Neutrophils % 56.9 %; White Blood Count 10.4 K/mcL (4.3-11.1)
[2020-12-24 04:31] LABS: Alanine Aminotransferase 46 Units/L (7-52); Albumin 3.4 g/dL (3.5-5.7); Albumin/Globulin Ratio 1.1 (1.1-2.2); Alkaline Phosphatase 79 Units/L (34-104); Aspartate Amino Transferase 43 Units/L (13-39); BUN/Creatinine Ratio 21 (6-26); Bilirubin,Direct 0.1 mg/dL (0.0-0.2); Bilirubin,Indirect 0.4 mg/dL (0.0-1.0); Bilirubin,Total 0.5 mg/dL (0.3-1.0); Blood Urea Nitrogen 16 mg/dL (8-23); Calcium 8.4 mg/dL (8.6-10.3); Carbon Dioxide 24 mEq/L (23-29); Chloride 106 mEq/L (98-107); Globulin 3.2 g/dL (2.4-3.5); Glucose 92 mg/dL (70-105); Osmolality,Calculated 289 (280-300); Potassium 3.6 mEq/L (3.5-5.1); Sodium 139 mEq/L (136-145); Total Protein 6.6 g/dL (6.4-8.9); eGFR For African Americans > 60 (> 60); eGFR For Non-African Americans > 60 (> 60)
[2020-12-24 04:33] LABS: Alanine Aminotransferase 46 Units/L (7-52); Albumin 3.4 g/dL (3.5-5.7); Albumin/Globulin Ratio 1.1 (1.1-2.2); Alkaline Phosphatase 79 Units/L (34-104); Aspartate Amino Transferase 43 Units/L (13-39); BUN/Creatinine Ratio 21 (6-26); Bilirubin,Total 0.5 mg/dL (0.3-1.0); Blood Urea Nitrogen 16 mg/dL (8-23); Calcium 8.3 mg/dL (8.6-10.3); Carbon Dioxide 24 mEq/L (23-29); Chloride 106 mEq/L (98-107); Globulin 3.2 g/dL (2.4-3.5); Glucose 91 mg/dL (70-105); Lactate Dehydrogenase 182 Units/L (140-271); Osmolality,Calculated 289 (280-300); Potassium 3.6 mEq/L (3.5-5.1); Sodium 139 mEq/L (136-145); Total Protein 6.6 g/dL (6.4-8.9); eGFR For African Americans > 60 (> 60); eGFR For Non-African Americans > 60 (> 60)
[2020-12-24 06:52] VITALS: BP 148/80; PULSE 71; TEMP 98.7; O2SAT 94
[2020-12-24] MEDS ORDERED: Ibuprofen 400 MG TABLET PO PRN (07:27)
[2020-12-24] MEDS: amLODIPine 5 MG TABLET PO SCH (08:19)
[2020-12-24] MEDS: CeFAZolin 2,000 MG/120 ML BAG IVPB SCH (08:19)
[2020-12-24] MEDS: Azithromycin 250 MG TABLET PO SCH (08:20)
[2020-12-24 10:28] LABS: Adenovirus F 40/41 PCR Not detected (Not detect); Astrovirus PCR Not detected (Not detect); C.difficile Toxin A/B Gene PCR Not detected (Not detect); Campylobacter by PCR Not detected (Not detect); Cryptosporidium by PCR Not detected (Not detect); Cyclospora cayetanensis PCR Not detected (Not detect); E. coli O157 by PCR Not detected (Not detect); Entamoeba histolytica PCR Not detected (Not detect); Enteroaggregative E.coli(EAEC) Not detected (Not detect); Enteropathogenic E.coli(EPEC) Not detected (Not detect); Enterotoxigenic E.coli (ETEC) Not detected (Not detect); Giardia lamblia PCR Not detected (Not detect); Norovirus GI/GII PCR Not detected (Not detect); Plesiomonas shigelloides PCR Not detected (Not detect); Rotavirus A PCR Not detected (Not detect); Salmonella PCR Not detected (Not detect); Sapovirus PCR Not detected (Not detect); Shig/EnteroinvasiveE coli EIEC Not detected (Not detect); Shigalike tox-prod E coli STEC Not detected (Not detect); Vibrio PCR Not detected (Not detect); Vibrio cholerae PCR Not detected (Not detect); Yersinia enterocolitica PCR Not detected (Not detect)
[2020-12-24 15:07] LABS: QuantiFERON Mitogen minus NIL >10.00 IU/mL
[2020-12-25 10:44] LABS: QuantiFERON NIL 0.08 IU/mL; QuantiFERON-TB Gold In-Tube NEGATIVE (Negative)
[2020-12-26 11:18] LABS: Brucella Antibody Total <1:20 (<1:20)
== END 2020-12-24 11:54 | disposition home or self-care (01) ==
LOC: EMEROOARM 15:51 → 3ANU 15:51 → SUATTDRO 19:51 → 3ANU 21:31
PROVIDERS: ADMIT Internal Medicine; ATTEND Internal Medicine